=== PATIENT | male | born 1955 | race Caucasian/White ===

== ENCOUNTER → 2020-11-05 | Outpatient (CLI) | payer BC ==
[~2020-11-05] MED LIST: ATOR1TAB21 PO; FURO40TA2 PO; FURO80TA2 PO; GABA-845 PO; GLIM2TAB29 PO; LOSA100T50 PO; METF-414 PO; METF10004 PO; METF500T13 PO; METO1TAB7 PO; OMEP-221 PO; POTA20TA6 PO; VITMTA PO; ZOLO100T PO
== END ==
LOC: M LABSMTC 11:32
PROVIDERS: ATTEND Anesthesiology
DX: Z01.812 Encounter for preprocedural laboratory examination (principal); Z20.822 Contact with and (suspected) exposure to COVID-19

== ENCOUNTER → 2021-09-15 | Outpatient (REF) | payer MEDICARE ==
[~2021-09-15] MED LIST changes: +GABA-283 PO; -GABA-845 PO; +LOSA100T45 PO; -LOSA100T50 PO; -OMEP-221 PO; +OMEP40CA5 PO; +POTA-151 PO; -POTA20TA6 PO
[2021-09-15 21:39] LABS: % LABILE ALKALINE PHOSPHATASE 62.3 %
== END ==
LOC: M LAB REF 16:11
PROVIDERS: ATTEND Internal Medicine
DX: R74.8 Abnormal levels of other serum enzymes (principal)

== ENCOUNTER → 2021-09-29 | Outpatient (CLI) | payer MEDICARE | LOC: M RAD 08:41 | PROVIDERS: ATTEND Internal Medicine | DX: R74.01 Elevation of levels of liver transaminase levels (principal) ==

== ENCOUNTER 2023-04-18 07:46 | Day surgery (SDC) | payer MEDICARE ==
[~2023-04-18] VITALS: Ht 182.9 cm; Wt 134.6 kg
[~2023-04-18 07:46] MED LIST changes: -GABA-283 PO; +GABA-284 PO; -LOSA100T45 PO; +LOSA100T46 PO; +NS 1,000 ML IV ONE; +PANT40TA29 PO
[2023-04-18 09:58] VITALS: BP 134/63; TEMP 97.2; O2SAT 96
== END 2023-04-18 09:40 | disposition home or self-care (01) ==
LOC: M OPP 07:46
PROVIDERS: ATTEND Internal Medicine Gastroenterology
DX: K22.70 Barrett's esophagus without dysplasia (principal); K22.89 Other specified disease of esophagus; K44.9 Diaphragmatic hernia without obstruction or gangrene; I10 Essential (primary) hypertension; E78.5 Hyperlipidemia, unspecified; E11.40 Type 2 diabetes mellitus with diabetic neuropathy, unspecified; M19.90 Unspecified osteoarthritis, unspecified site; F41.9 Anxiety disorder, unspecified; F32.A Depression, unspecified; G47.30 Sleep apnea, unspecified; Z85.46 Personal history of malignant neoplasm of prostate; Z87.891 Personal history of nicotine dependence; Z79.84 Long term (current) use of oral hypoglycemic drugs; Z79.899 Other long term (current) drug therapy

== ENCOUNTER → 2023-10-30 | Outpatient (REF) | payer MEDICARE ==
[~2023-10-30] MED LIST changes: -NS 1,000 ML IV ONE
[2023-10-30 21:51] LABS: APPEARANCE, URINE HAZY (CLEAR); BACTERIA, URINE AUTO 1+ (NEGATIVE); BILIRUBIN, URINE AUTO NEGATIVE (NEGATIVE); BLOOD, URINE BLOOD NEGATIVE (NEGATIVE); COLOR, URINE AMBER (YELLOW); GLUCOSE, URINE (UA) AUTO NEGATIVE (NEGATIVE); KETONE, URINE AUTO NEGATIVE (NEGATIVE); LEUKOCYTE ESTERASE, URINE AUTO TRACE (NEGATIVE); MUCUS, URINE SMALL (NEGATIVE); NITRITE, URINE AUTO NEGATIVE (NEGATIVE); PROTEIN, URINE AUTO NEGATIVE (NEGATIVE); RBC, URINE AUTO 2 /HPF (0-3); SPECIFIC GRAVITY URINE AUTO 1.014 (1.002-1.035); SQUAMOUS EPITHELIAL CELL UR AU 0 /HPF (0-6); UROBILINOGEN, URINE AUTO 0.2 mg/dL (0.0-2.0); WBC, URINE AUTO 15 /HPF (0-3)
== END ==
LOC: M LAB REF 20:56
PROVIDERS: ATTEND Physician Assistant Medical
DX: N39.0 Urinary tract infection, site not specified (principal)

== ENCOUNTER 2024-01-24 12:45 | Inpatient (IN) | payer MEDICARE ==
[~2024-01-24] VITALS: Ht 182.9 cm; Wt 125.0 kg
[2024-01-24 14:07] LABS: BASO # 0.1 10^3/uL (0.0-0.2); BASO % 0.5 % (0.0-1.0); EOS # 0.3 10^3/uL (0.0-0.5); EOS % 2.5 % (0.0-3.0); HEMATOCRIT 39.1 % (42.0-52.0); HEMOGLOBIN 12.6 g/dl (13.5-17.5); LYMPH # 3.5 10^3/uL (1.5-5.0); LYMPH % 31.4 % (24.0-44.0); MEAN CORPUSCULAR HEMOGLOBIN 30.3 pg (27.0-33.0); MEAN CORPUSCULAR HGB CONC 32.2 g/dl (32.0-36.5); MONO # 0.6 10^3/uL (0.0-0.8); MONO % 5.7 % (2.0-8.0); NEUTROPHILS # 6.6 10^3/uL (1.5-8.5); NEUTROPHILS % 59.5 % (36.0-66.0); PLATELET COUNT, AUTOMATED 299 10^3/uL (150-450); RED BLOOD COUNT 4.16 10^6/uL (4.30-6.10); WHITE BLOOD COUNT 11.1 10^3/uL (4.0-10.0)
[2024-01-24 14:12] LABS: ERYTHROCYTE SEDIMENTATION RATE > 130 mm/hr (0-20)
[2024-01-24 14:31] LABS: BLOOD UREA NITROGEN 12 MG/DL (9-23); CALCIUM LEVEL 9.2 MG/DL (8.3-10.6); CARBON DIOXIDE LEVEL 30 MMOL/L (20-31); CHLORIDE LEVEL 104 MMOL/L (98-107); CREATININE FOR GFR 0.69 MG/DL (0.70-1.30); GLOMERULAR FILTRATION RATE > 60.0 (>42); GLUCOSE, FASTING 115 MG/DL (74-106); POTASSIUM SERUM 4.5 MMOL/L (3.5-5.1); SODIUM LEVEL 140 MMOL/L (136-145)
[2024-01-24 14:38] LABS: PROCALCITONIN 0.08 ng/ml
[2024-01-24] MEDS: CEFTAROLINE FOSAMIL 600 MG in D5W MINI-BAG PLUS 50 ML IV ONE (15:58)
[2024-01-24] MEDS ORDERED: GLUCOSE 4 GM CHEW PO PRN (16:25)
[2024-01-24] MEDS ORDERED: GLUCAGON INJ 1MG VIAL SC PRN (16:25)
[2024-01-24] MEDS ORDERED: DEXTROSE 50% 50ML SYRINGE IV PRN (16:25)
[2024-01-24] MEDS ORDERED: PIPERACILLIN/TAZOBACTAM SOD 3.375 GM in D5W MINI-BAG PLUS 50 ML IV SCH (17:00)
[2024-01-24] MEDS: INSULIN LISPRO (NovoLOG) PER UNIT SC SCH ×2 (17:30→21:00)
[2024-01-24] MEDS ORDERED: MULT1TAB50 PO (17:46)
[2024-01-24] MEDS ORDERED: BUSP10TA PO (17:46)
[2024-01-24] MEDS ORDERED: HOME MED LIST COMPLETE! XX SCH (17:50)
[2024-01-24] MEDS: LACTOBACILLUS ACIDOPHILUS CAP (BACID) PO SCH (18:06)
[2024-01-24] MEDS: PIPERACILLIN/TAZOBACTAM SOD 3.375 GM in D5W MINI-BAG PLUS 50 ML IV SCH (18:06)
[2024-01-24 19:17] LABS: INR 1.15; PARTIAL THROMBOPLASTIN TIME 29.9 SECONDS (24.8-34.2); PROTHROMBIN TIME 14.4 SECONDS (12.5-14.5)
[2024-01-24 20:00] VITALS: BP 135/69; TEMP 98.8; O2SAT 96
[2024-01-24] MEDS: GABAPENTIN 400MG CAP PO SCH (20:59)
[2024-01-24] MEDS: ATORVASTATIN 20 MG TAB PO SCH (20:59)
[2024-01-24] MEDS: LOSARTAN 50MG TABLET PO SCH (21:00)
[2024-01-25 03:40] VITALS: BP 136/69; TEMP 97.9; O2SAT 92
[2024-01-25 06:54] LABS: HEMOGLOBIN 11.6 g/dl (13.5-17.5); MEAN CORPUSCULAR HEMOGLOBIN 30.4 pg (27.0-33.0); MEAN CORPUSCULAR HGB CONC 32.2 g/dl (32.0-36.5); MEAN CORPUSCULAR VOLUME 94.2 fl (80.0-96.0); PLATELET COUNT, AUTOMATED 264 10^3/uL (150-450); RED BLOOD COUNT 3.82 10^6/uL (4.30-6.10); WHITE BLOOD COUNT 9.9 10^3/uL (4.0-10.0)
[2024-01-25 07:23] LABS: ALKALINE PHOSPHATASE 149 U/L (46-116); ALT/SGPT 53 U/L (7.0-40); AST/SGOT 38 U/L (<34); BLOOD UREA NITROGEN 14 MG/DL (9-23); CALCIUM LEVEL 8.2 MG/DL (8.3-10.6); CARBON DIOXIDE LEVEL 26 MMOL/L (20-31); CHLORIDE LEVEL 104 MMOL/L (98-107); CREATININE FOR GFR 0.69 MG/DL (0.70-1.30); GLOMERULAR FILTRATION RATE > 60.0 (>42); GLUCOSE, FASTING 180 MG/DL (74-106); POTASSIUM SERUM 4.2 MMOL/L (3.5-5.1); SODIUM LEVEL 137 MMOL/L (136-145)
[2024-01-25] MEDS: METOPROLOL SUCC (TopROL XL) 50MG **XL** TAB PO SCH (08:32)
[2024-01-25] MEDS: SERTRALINE 100 MG TAB PO SCH (08:33)
[2024-01-25] MEDS: PANTOPRAZOLE 40MG TAB (PROTONIX) PO SCH (08:33)
[2024-01-25] MEDS: busPIRone 10 MG TAB PO SCH (08:33)
[2024-01-25] MEDS: FUROSEMIDE 80 MG TAB PO SCH (08:33)
[2024-01-25] MEDS: POTASSIUM CHLORIDE 10MEQ SR TABLET PO SCH (08:34)
[2024-01-25 12:00] VITALS: BP 137/54; TEMP 98.8; O2SAT 95
[2024-01-25 18:13] VITALS: TEMP 100.5
[2024-01-25] MEDS: ACETAMINOPHEN TAB 650MG DOSE (2X325MG) PO PRN (18:26)
[2024-01-25 20:10] VITALS: BP 140/67; TEMP 100.1; O2SAT 95
[2024-01-26] VITALS (9 sets, daily range): BP systolic 140–182; BP diastolic 63–80; TEMP 97.9–100.8; O2SAT 94–96
[2024-01-26 06:35] LABS: HEMATOCRIT 35.1 % (42.0-52.0); HEMOGLOBIN 11.6 g/dl (13.5-17.5); MEAN CORPUSCULAR HEMOGLOBIN 30.8 pg (27.0-33.0); MEAN CORPUSCULAR VOLUME 93.1 fl (80.0-96.0); PLATELET COUNT, AUTOMATED 283 10^3/uL (150-450); RED BLOOD COUNT 3.77 10^6/uL (4.30-6.10); WHITE BLOOD COUNT 10.2 10^3/uL (4.0-10.0)
[2024-01-26 06:52] LABS: ALBUMIN 2.8 G/DL (3.2-5.2); ALKALINE PHOSPHATASE 178 U/L (46-116); ALT/SGPT 88 U/L (7.0-40); AST/SGOT 65 U/L (<34); BILIRUBIN,TOTAL 1.2 MG/DL (0.3-1.2); BLOOD UREA NITROGEN 15 MG/DL (9-23); CALCIUM LEVEL 8.4 MG/DL (8.3-10.6); CARBON DIOXIDE LEVEL 30 MMOL/L (20-31); CHLORIDE LEVEL 105 MMOL/L (98-107); CREATININE FOR GFR 0.68 MG/DL (0.70-1.30); GLOMERULAR FILTRATION RATE > 60.0 (>42); GLUCOSE, FASTING 140 MG/DL (74-106); POTASSIUM SERUM 4.5 MMOL/L (3.5-5.1); SODIUM LEVEL 141 MMOL/L (136-145); TOTAL PROTEIN 6.1 G/DL (5.7-8.2)
[2024-01-26 10:34] LABS: PROCALCITONIN 0.07 ng/ml
[2024-01-26] MEDS: ENOXAPARIN 40MG/0.4ML SYRINGE (J1650 PER 10MG) SC SCH (11:14)
[2024-01-26] MEDS: amLODIPine 5 MG TAB PO SCH (13:54)
[2024-01-26] MEDS: FUROSEMIDE 40MG/4ML VIAL IV SCH (17:13)
[2024-01-27 05:54] VITALS: BP 148/70; TEMP 97.7; O2SAT 95
[2024-01-27 06:43] LABS: HEMATOCRIT 37.2 % (42.0-52.0); HEMOGLOBIN 11.9 g/dl (13.5-17.5); MEAN CORPUSCULAR HEMOGLOBIN 29.8 pg (27.0-33.0); MEAN CORPUSCULAR VOLUME 93.2 fl (80.0-96.0); PLATELET COUNT, AUTOMATED 298 10^3/uL (150-450); RED BLOOD COUNT 3.99 10^6/uL (4.30-6.10); WHITE BLOOD COUNT 8.8 10^3/uL (4.0-10.0)
[2024-01-27 07:08] LABS: ALBUMIN 2.8 G/DL (3.2-5.2); ALKALINE PHOSPHATASE 211 U/L (46-116); ALT/SGPT 120 U/L (7.0-40); AST/SGOT 76 U/L (<34); BILIRUBIN,TOTAL 1.1 MG/DL (0.3-1.2); BLOOD UREA NITROGEN 14 MG/DL (9-23); CALCIUM LEVEL 8.9 MG/DL (8.3-10.6); CARBON DIOXIDE LEVEL 31 MMOL/L (20-31); CHLORIDE LEVEL 102 MMOL/L (98-107); CREATININE FOR GFR 0.71 MG/DL (0.70-1.30); GLOMERULAR FILTRATION RATE > 60.0 (>42); GLUCOSE, FASTING 130 MG/DL (74-106); SODIUM LEVEL 139 MMOL/L (136-145); TOTAL PROTEIN 6.3 G/DL (5.7-8.2)
[2024-01-27 12:29] VITALS: BP 138/59; TEMP 98.2; O2SAT 94
[2024-01-27 20:52] VITALS: BP 139/62; TEMP 98.2; O2SAT 97
[2024-01-28 04:00] VITALS: BP 130/71; TEMP 98.1; O2SAT 98
[2024-01-28 07:12] LABS: HEMATOCRIT 36.7 % (42.0-52.0); HEMOGLOBIN 11.8 g/dl (13.5-17.5); MEAN CORPUSCULAR HEMOGLOBIN 30.1 pg (27.0-33.0); MEAN CORPUSCULAR HGB CONC 32.2 g/dl (32.0-36.5); MEAN CORPUSCULAR VOLUME 93.6 fl (80.0-96.0); PLATELET COUNT, AUTOMATED 310 10^3/uL (150-450); RED BLOOD COUNT 3.92 10^6/uL (4.30-6.10); WHITE BLOOD COUNT 9.2 10^3/uL (4.0-10.0)
[2024-01-28 07:35] LABS: ALBUMIN 2.8 G/DL (3.2-5.2); ALKALINE PHOSPHATASE 225 U/L (46-116); ALT/SGPT 166 U/L (7.0-40); AST/SGOT 99 U/L (<34); BLOOD UREA NITROGEN 16 MG/DL (9-23); CALCIUM LEVEL 8.5 MG/DL (8.3-10.6); CARBON DIOXIDE LEVEL 28 MMOL/L (20-31); CHLORIDE LEVEL 104 MMOL/L (98-107); CREATININE FOR GFR 0.73 MG/DL (0.70-1.30); GLOMERULAR FILTRATION RATE > 60.0 (>42); GLUCOSE, FASTING 157 MG/DL (74-106); SODIUM LEVEL 139 MMOL/L (136-145); TOTAL PROTEIN 6.3 G/DL (5.7-8.2)
[2024-01-28] MEDS: LEVEMIR (INSULIN DETEMIR) 1 UNITS/0.01ML SC SCH (08:27)
[2024-01-28 12:00] VITALS: BP 136/71; TEMP 97.9; O2SAT 97
[2024-01-28 16:18] LABS: HEPATITIS B SURFACE ANTIGEN NEGATIVE (NEGATIVE)
[2024-01-28 16:31] LABS: HIV 1&2 SCREEN NEGATIVE (NEGATIVE)
[2024-01-28 16:38] LABS: HEPATITIS C VIRUS ABY INDEX < 0.02 INDEX (<0.8)
[2024-01-28] MEDS ORDERED: ISOVUE-370 76% 100ML VIAL As Ordered ONE (16:49)
[2024-01-28 17:20] VITALS: BP 154/76
[2024-01-28] MEDS: CEPHALEXIN 500 MG CAP PO SCH (17:20)
[2024-01-28 20:02] VITALS: BP 133/72; TEMP 98.1; O2SAT 95
[2024-01-29 04:43] VITALS: BP 146/75; TEMP 98.1; O2SAT 95
[2024-01-29 07:14] LABS: HEMATOCRIT 36.9 % (42.0-52.0); HEMOGLOBIN 11.8 g/dl (13.5-17.5); MEAN CORPUSCULAR HEMOGLOBIN 30.3 pg (27.0-33.0); MEAN CORPUSCULAR VOLUME 94.6 fl (80.0-96.0); PLATELET COUNT, AUTOMATED 328 10^3/uL (150-450); WHITE BLOOD COUNT 9.5 10^3/uL (4.0-10.0)
[2024-01-29 07:54] LABS: ALBUMIN 2.8 G/DL (3.2-5.2); ALKALINE PHOSPHATASE 219 U/L (46-116); ALT/SGPT 138 U/L (7.0-40); AST/SGOT 63 U/L (<34); BILIRUBIN,TOTAL 0.8 MG/DL (0.3-1.2); BLOOD UREA NITROGEN 17 MG/DL (9-23); CALCIUM LEVEL 8.7 MG/DL (8.3-10.6); CARBON DIOXIDE LEVEL 30 MMOL/L (20-31); CHLORIDE LEVEL 102 MMOL/L (98-107); GLOMERULAR FILTRATION RATE > 60.0 (>42); GLUCOSE, FASTING 138 MG/DL (74-106); SODIUM LEVEL 136 MMOL/L (136-145); TOTAL PROTEIN 6.3 G/DL (5.7-8.2)
[2024-01-29] MEDS: LEVEMIR (INSULIN DETEMIR) 1 UNITS/0.01ML SC SCH (08:39)
[2024-01-29 08:42] VITALS: BP 145/75
[2024-01-29 12:00] VITALS: BP 139/73; TEMP 98.2; O2SAT 98
[2024-01-29] MEDS ORDERED: RISATAB3 PO (15:51)
[2024-01-29] MEDS ORDERED: CEPH500C PO (15:51)
[2024-01-31 11:48] LABS: HEPATITIS B SURF AB QUANT < 5 mIU/mL (> OR = 10)
[2024-01-31 16:17] LABS: HEPATITIS B CORE ANTIBODY IGG NON-REACTIVE (NON-REACTIVE)
== END 2024-01-29 17:03 | disposition home health service (06) | DRG 602 ==
LOC: M ED 12:45 → EEVIPCON 16:21 → M ED INP 16:21 → M MSPAV 19:54
PROVIDERS: ADMIT Internal Medicine; ATTEND Student in an Organized Health Care Education/Training Program
DX: L03.116 Cellulitis of left lower limb (principal); A41.9 Sepsis, unspecified organism; Z68.38 Body mass index [BMI] 38.0-38.9, adult; I10 Essential (primary) hypertension; D64.9 Anemia, unspecified; E11.42 Type 2 diabetes mellitus with diabetic polyneuropathy; E66.9 Obesity, unspecified; G47.33 Obstructive sleep apnea (adult) (pediatric); K21.9 Gastro-esophageal reflux disease without esophagitis; F41.9 Anxiety disorder, unspecified; E78.5 Hyperlipidemia, unspecified; E11.51 Type 2 diabetes mellitus with diabetic peripheral angiopathy without gangrene; I89.0 Lymphedema, not elsewhere classified; Z85.46 Personal history of malignant neoplasm of prostate; B96.20 Unspecified Escherichia coli [E. coli] as the cause of diseases classified elsewhere; B95.61 Methicillin susceptible Staphylococcus aureus infection as the cause of diseases classified elsewhere; K22.70 Barrett's esophagus without dysplasia; Z79.899 Other long term (current) drug therapy; Z89.022 Acquired absence of left finger(s); M77.31 Calcaneal spur, right foot; Z87.891 Personal history of nicotine dependence

== ENCOUNTER → 2024-02-26 | Outpatient (REF) | payer MEDICARE ==
[~2024-02-26] MED LIST changes: +BUSP10TA PO; +CEPH500C PO; +MULT1TAB50 PO; +RISATAB3 PO
== END ==
LOC: M LAB REF 13:33
PROVIDERS: ATTEND Internal Medicine
DX: S81.802A Unspecified open wound, left lower leg, initial encounter (principal); M77.9 Enthesopathy, unspecified

== ENCOUNTER 2025-04-01 10:09 | Day surgery (SDC) | payer MEDICARE ==
[~2025-04-01] VITALS: Ht 182.9 cm; Wt 124.3 kg
[~2025-04-01 10:09] MED LIST changes: +FARX1TAB3 PO; +LEVOTAB10 PO; +SEMA0.257
[2025-04-01] MEDS ORDERED: LIDOCAINE 2% 100 MG/5 ML SDV (FOR ANES.) As Ordered ONE (11:09)
[2025-04-01 11:51] VITALS: TEMP 97.3
[2025-04-01 12:09] VITALS: BP 132/62; O2SAT 98
== END 2025-04-01 12:14 | disposition home or self-care (01) ==
LOC: M OPP 10:09
PROVIDERS: ATTEND Internal Medicine Gastroenterology
DX: Z12.11 Encounter for screening for malignant neoplasm of colon (principal); D12.0 Benign neoplasm of cecum; K22.70 Barrett's esophagus without dysplasia; K21.00 Gastro-esophageal reflux disease with esophagitis, without bleeding; K64.0 First degree hemorrhoids; K57.30 Diverticulosis of large intestine without perforation or abscess without bleeding; Z86.0100 Personal history of colon polyps, unspecified; E11.40 Type 2 diabetes mellitus with diabetic neuropathy, unspecified; I10 Essential (primary) hypertension; E78.00 Pure hypercholesterolemia, unspecified; G47.30 Sleep apnea, unspecified; Z85.46 Personal history of malignant neoplasm of prostate; Z79.899 Other long term (current) drug therapy; Z79.85 Long-term (current) use of injectable non-insulin antidiabetic drugs; Z79.84 Long term (current) use of oral hypoglycemic drugs; F41.9 Anxiety disorder, unspecified; F32.A Depression, unspecified; Z80.0 Family history of malignant neoplasm of digestive organs